=== PATIENT | female | born 1955 | race Native Hawaiian/Other Pacific Islander ===

== ENCOUNTER 2016-03-29 08:58 | Emergency (ER) | payer OTHER ==
[~2016-03-29] VITALS: Ht 160 cm; Wt 101.2 kg
[~2016-03-29 08:58] MED LIST: APAP/HYDROCO1 TAB PO; BUPROPN HCL300 MG PO; CLARITIN10 MG PO; GENPRIL200 MG PO; HYZAAR1 TA2 PO; LABETALOL100 MG PO; VERA240T17 PO
[2016-03-29] MEDS ORDERED: LISI10TA11 PO (09:33)
[2016-03-29] MEDS ORDERED: HYDROCHLOROT12.5 M1 PO (09:36)
[2016-03-29 12:08] VITALS: BP 164/98; TEMP 98.6
== END 2016-03-29 12:09 | disposition home or self-care (01) ==
LOC: ED 08:58
DX: I10 Essential (primary) hypertension (principal)
CPT/HCPCS: 99284

== ENCOUNTER 2016-03-29 08:58 | Outpatient (CLI) | payer OTHER ==
[2016-03-29] MEDS ORDERED: LISI10TA11 PO (09:33)
[2016-03-29] MEDS ORDERED: HYDROCHLOROT12.5 M1 PO (09:36)
== END 2016-03-29 09:01 | disposition short-term general hospital (02) ==
LOC: AMB 08:58
DX: I10 Essential (primary) hypertension (principal); R07.89 Other chest pain
CPT/HCPCS: A0425; A0427

== ENCOUNTER 2016-12-22 11:29 | Emergency (ER) | payer OTHER ==
[~2016-12-22] VITALS: Ht 160 cm; Wt 104.3 kg
[~2016-12-22 11:29] MED LIST changes: +HYDROCHLOROT12.5 M1 PO; +LISI10TA11 PO
[2016-12-22 11:30] VITALS: TEMP 98.4
[2016-12-22 13:00] VITALS: BP 168/90
== END 2016-12-22 13:15 | disposition home or self-care (01) ==
LOC: ED 11:29
DX: R05 Cough (principal); T46.4X5A Adverse effect of angiotensin-converting-enzyme inhibitors, initial encounter
CPT/HCPCS: 94664; 99283; J1100

== ENCOUNTER 2018-02-01 07:29 | Outpatient (CLI) | payer OTHER ==
[~2018-02-01] VITALS: Ht 152.4 cm; Wt 136.1 kg
== END 2018-02-01 23:00 | disposition home or self-care (01) ==
LOC: NM 07:29
DX: R07.89 Other chest pain (principal); E83.42 Hypomagnesemia; E87.6 Hypokalemia; I45.81 Long QT syndrome; I10 Essential (primary) hypertension
CPT/HCPCS: 93306; A9500; J2785

== ENCOUNTER 2021-12-07 08:44 | Outpatient (CLI) | payer OTHER ==
[~2021-12-07] VITALS: Ht 165.1 cm; Wt 115.7 kg
== END 2021-12-07 20:29 | disposition home or self-care (01) ==
LOC: NM 08:44
PROVIDERS: ATTEND Nurse Practitioner
DX: I25.10 Atherosclerotic heart disease of native coronary artery without angina pectoris (principal); I10 Essential (primary) hypertension
CPT/HCPCS: A9500; J2785